=== PATIENT | female | born 1975 | race Caucasian/White ===

== ENCOUNTER 2017-01-24 16:09 | Emergency (ER) | payer MEDICAID ==
[~2017-01-24] VITALS: Ht 160 cm; Wt 95.0 kg
[~2017-01-24 16:09] MED LIST: METHOCARBAM500 MG PO; MOBIC7.5 M1 PO; MOTRIN800 MG/TAB PO; OMEPRAZOLE20 M1 PO; SIMVASTATIN40 MG PO; SINGULAIR PO; ULTRAM50 M1 PO
[2017-01-24 16:47] LABS: HEMOGLOBIN 13.2 g/dl (12.0-16.0); IMMATURE GRANULOCYTES 0.3 % (0.0-1.0); MEAN CELL VOLUME 92.5 fL CALC (80.0-100.0); MEAN CORPUSCULAR HGB 32.1 pG CALC (26.0-32.0); MEAN CORPUSCULAR HGB CONC 34.7 g/L CALC (32.0-36.0); NEUT# 5.44 thou/uL (2.00-7.15); RED BLOOD COUNT 4.11 mill/uL (4.20-5.60); RED CELL DISTRI WIDTH 12.4 % (11.5-15.5)
[2017-01-24 17:05] LABS: ACT PARTIAL THROMBO TIME 26.8 SECONDS (20.0-32.5); ALBUMIN 3.9 g/dL (3.2-5.0); ALKALINE PHOSPHATASE 67 u/l (38-126); AMYLASE 47 u/l (30-110); ANION GAP 14 (6-22 (CALC)); BILIRUBIN, TOTAL 0.5 mg/dL (0.0-1.4); BUN 8 mg/dL (7-17); BUN/CREATININE RATIO 13 (12-20 (CALC)); CALCIUM 9.2 mg/dL (8.4-10.2); CARBON DIOXIDE 23 mmol/l (22-30); CHLORIDE 110 mmol/l (95-108); CREATININE 0.7 mg/dL (0.5-1.0); GFR > 60 ML/MIN (>=60 (CALC)); GFR FOR AFR.AMER. > 60 ML/MIN (>=60 (CALC)); GLUCOSE 103 mg/dL (65-105); INTERNATIONAL NORMALIZED RATIO 0.9 RATIO (0.7-1.3); LIPASE 102 u/l (23-300); POTASSIUM 3.8 mmol/l (3.5-5.1); PROTHROMBIN TIME 9.9 SECONDS (9.0-12.5); SGOT/AST 21 u/l (14-36); SGPT/ALT 34 u/l (9-52); SODIUM 143 mmol/l (137-146); TOTAL PROTEIN 6.9 g/dL (6.3-8.2)
[2017-01-24 17:14] LABS: MYOGLOBIN 25 ng/mL (0 - 62)
[2017-01-24] MEDS ORDERED: COLACE100 MG PO (17:26)
[2017-01-24 17:40] LABS: URINE BILIRUBIN - DIPSTICK NEGATIVE (NEGATIVE); URINE BLOOD DIPSTICK NEGATIVE (NEGATIVE); URINE CLARITY CLEAR; URINE COLOR YELLOW; URINE GLUCOSE - DIPSTICK NEGATIVE (NEGATIVE); URINE KETONE NEGATIVE (NEGATIVE); URINE LEUK ESTERASE NEGATIVE (NEGATIVE); URINE NITRITE - DIPSTICK NEGATIVE (Negative); URINE PROTEIN - DIPSTICK NEGATIVE (NEG-TRACE); URINE SPECIFIC GRAVITY >=1.030; URINE UROBILINOGEN - DIPSTICK 0.2 E.U./dL (0.2)
[2017-01-24 17:57] VITALS: BP 117/63
== END 2017-01-24 17:57 | disposition home or self-care (01) | DRG 379 ==
LOC: ED 16:09
PROVIDERS: Emergency Medicine
DX: K62.5 Hemorrhage of anus and rectum (principal); R00.1 Bradycardia, unspecified; R10.13 Epigastric pain; R11.0 Nausea; K21.9 Gastro-esophageal reflux disease without esophagitis; E78.00 Pure hypercholesterolemia, unspecified; F31.9 Bipolar disorder, unspecified

== ENCOUNTER 2017-02-26 06:05 | Day surgery (SDC) | payer SELFPAY ==
[~2017-02-26] VITALS: Ht 160 cm; Wt 93.9 kg
[~2017-02-26 06:05] MED LIST changes: +B-125000 MCG SL; +COLACE100 MG PO; +EQ OMEPRAZOLE20 MG PO; +MOTRIN800 MG PO; +SINGULAIR10 MG PO; +[UNRECOGNIZED DRUG - OTHER] PR
[2017-02-26 08:00] VITALS: BP 108/67
== END 2017-02-26 08:25 | disposition home or self-care (01) | DRG 378 ==
LOC: ENDO 06:05 → ORM 10:30 → ENDO 10:30
PROVIDERS: ATTEND Surgery
PROC: 0DBK8ZX Excision of Ascending Colon, Via Natural or Artificial Opening Endoscopic, Diagnostic (ICD-10-PCS; principal; 2017-02-26)
PROC: 0DBP8ZX Excision of Rectum, Via Natural or Artificial Opening Endoscopic, Diagnostic (ICD-10-PCS; 2017-02-26)
DX: K62.5 Hemorrhage of anus and rectum (principal); C20 Malignant neoplasm of rectum; D12.2 Benign neoplasm of ascending colon; R19.7 Diarrhea, unspecified; R10.9 Unspecified abdominal pain